=== PATIENT | female | born 1980 | race Caucasian/White ===

== ENCOUNTER 2017-09-09 07:42 | Day surgery (SDC) | payer BC ==
[~2017-09-09 07:42] MED LIST: RINGER'S SOLUTION,LACTATED 1,000 ML IV PRN
[2017-09-09] MEDS ORDERED: RINGER'S SOLUTION,LACTATED 1,000 ML IV ONE (08:15)
[2017-09-09] MEDS ORDERED: LIDOCAINE HCL/EPINEPHRINE 50 ML VIAL IJ ONE ×2 (10:00)
--- NOTE | 2017-09-09 12:19 | OR ---
Operative Report - Dictated Report Narrative: DATE OF PROCEDURE: 09/09/2017 INDICATION: 36 year old female with chronic pelvic pain, dysmenorrhea, right hydrosalpinx noted on pelvic ultrasound, desires permanent sterilization by removal of both fallopian tubes PREOPERATIVE DIAGNOSIS: Chronic pelvic pain, dysmenorrhea, right hydrosalpinx noted on pelvic ultrasound, desires permanent sterilization via removal of fallopian tubes POSTOPERATIVE DIAGNOSIS: Chronic pelvic pain, dysmenorrhea, tubal-ovarian adhesions, pelvic adhesions, possible endometriosis, uterine polyp OPERATION: Diagnostic laparoscopy, laparoscopic bilateral salpingectomy, lysis of pelvic adhesions, peritoneal biopsy of posterior cul-de-sac, diagnostic hysteroscopy, dilation and curettage, and uterine polypectomy SURGEON: Nasima Bravo D.O. STUNT MAN: OR staff ANESTHESIA: General ESTIMATED BLOOD LOSS: Minimal FLUID REPLACEMENT: 950 mL URINE OUTPUT: 50 mL FINDINGS: Uterus densely adherent to bladder, left tube adherent to the left pelvic sidewall above the pelvic brim, right fallopian tube adherent and twisted around ovary and broad ligament, white punctate lesion in the posterior cul-de-sac on the left uterosacral ligament, arcuate shaped uterus sounding to 8 cm, 1-2 cm polyp in the lower uterine segment. SPECIMEN(S): Fallopian tubes, peritoneal biopsy of left uterosacral ligament/ posterior cul-de-sac, endometrial curettings, endometrial polyp DRAINS: Haley catheter to gravity drainage intraoperatively TECHNIQUE: The patient was taken to the operating room and placed in dorsal lithotomy position after adequate general anesthesia was obtained and SCDs placed on both legs. The anterior lip of the cervix was grasped with a long Allis clamp and a uterine manipulator was inserted into the cervical canal and attached to the Allis clamps as a means to manipulate the uterus. Haley catheter was inserted into the bladder and placed to gravity drainage. Gloves were changed and attention was turned to the abdomen where the umbilicus and suprapubic region were injected with a 1% lidocaine epinephrine was solution. A scalpel was used to score the skin and a 5 mm non-bladed trocar was inserted via direct technique under direct visualization through the umbilical incision. Pneumoperitoneum was created with CO2 gas. A 5 mm non-bladed trocar was inserted in a similar fashion in the left lower quadrant and a 12 mm non-bladed trocar was inserted suprapubically. Through these 3 ports the surgery was carried out with findings as noted above. Using Kleppinger's and laparoscopic scissors the omental adhesions were freed from the anterior abdominal wall to allow visualization of the pelvis. The right fallopian tube was identified and followed out to the fimbriated end. The fallopian tube was coagulated with the Kleppinger's approximately 2 cm from the cornual region and along the mesosalpinx. The tube was then excised with laparoscopic scissors and removed through the 12 mm port. The left fallopian tube was freed from the pelvic sidewall using Kleppinger's and sharp and blunt dissection. The fallopian tube was then followed out to the fimbriated and coagulated approximately 2 cm from the cornual region and along the mesosalpinx. The tube was excised and removed through the 12 mm port. The bladder adhesions to the anterior lower uterine segment were not freed due to their extensive adherence into the lower uterine segment. 1-2 mm punctate lesion in the posterior cul-de-sac was grasped with laparoscopic graspers, tented from the pelvic sidewall and excised with laparoscopic scissors. Hemostasis was assured with the Kleppinger's. A gelatinous fluid-filled free-floating mass was noted in the posterior cul-de- sac. This was removed with the suction purchasing manager. The pelvis was copiously irrigated and fluid was removed. The CO2 gas was removed from the abdominal cavity. Trochars were removed under direct visualization. The skin of all incisions was closed with 4-0 Monocryl. Dermabond was applied to all incisions. The Valchev manipulator was removed from the uterus and a 5 mm 30 hysteroscope was inserted through the cervical canal into the uterine cavity with findings as noted above. The cervix was gently dilated to accommodate a size 2 curet. Sharp curettage was performed within the uterine cavity removing moderate amount of tissue and polyp. The hysteroscope was reinserted to assure complete removal of the polyp and thorough sampling of the uterine cavity. Instruments were removed from the cervix and vagina. The Haley catheter was removed. Sponge, lap, instrument, and needle count were correct x 2. DISPOSITION: The patient was awakened and transferred to post anesthesia care unit in good condition.
[2017-09-09] MEDS ORDERED: HYDROcodone/ACETAMINOPHEN 1 EACH TABLET PO PRN (13:41)
[2017-09-09 14:18] VITALS: BP 128/69
== END 2017-09-09 07:43 | disposition home or self-care (01) ==
LOC: AMB 07:42
PROVIDERS: ATTEND Obstetrics & Gynecology
PROC: 0UDB7ZX Extraction of Endometrium, Via Natural or Artificial Opening, Diagnostic (ICD-10-PCS; 2017-09-09)
PROC: 0UJD8ZZ Inspection of Uterus and Cervix, Via Natural or Artificial Opening Endoscopic (ICD-10-PCS; 2017-09-09)
PROC: 0UB74ZZ Excision of Bilateral Fallopian Tubes, Percutaneous Endoscopic Approach (ICD-10-PCS; principal; 2017-09-09 09:45)
PROC: 0UBF4ZX Excision of Cul-de-sac, Percutaneous Endoscopic Approach, Diagnostic (ICD-10-PCS; 2017-09-09 09:45)
DX: N84.0 Polyp of corpus uteri (principal); N70.11 Chronic salpingitis; N73.6 Female pelvic peritoneal adhesions (postinfective); N94.6 Dysmenorrhea, unspecified; F41.1 Generalized anxiety disorder; E55.9 Vitamin D deficiency, unspecified; E66.9 Obesity, unspecified; Z68.41 Body mass index [BMI] 40.0-44.9, adult; Z87.891 Personal history of nicotine dependence; Z30.2 Encounter for sterilization

== ENCOUNTER 2017-10-31 18:08 | Emergency (ER) | payer BC ==
[2017-10-31] MEDS ORDERED: METOCLOPRAMIDE HCL 5 MG/ML VIAL IV ONE (18:41)
[2017-10-31] MEDS ORDERED: diphenhydrAMINE HCL 50 MG/ML VIAL IV ONE (18:41)
[2017-10-31] MEDS ORDERED: diphenhydrAMINE HCL 50 MG/ML VIAL ONE (18:42)
[2017-10-31] MEDS ORDERED: METOCLOPRAMIDE HCL 5 MG/ML VIAL ONE (18:42)
--- NOTE | 2017-10-31 19:00 | ERNOTE ---
Headache ER HPI - General Presenting Symptoms: headache Time Seen by Provider: 10/31/17 18:36 Source: patient, family Exam Limitations: no limitations - Immun/Allergies/Home Medications Immunizations: IMMUNIZATION HX Immunizations Up to Date Yes History of Influenza Vaccine No Hx Pneumococcal Vaccination No Allergies/Adverse Reactions: Allergies acetaminophen [From Percocet] Adverse Reaction (Mild, Verified 09/09/17 14:28) Itching oxycodone HCl [From Percocet] Adverse Reaction (Mild, Verified 09/09/17 14:28) Itching Tetracyclines Adverse Reaction (Verified 09/09/17 14:28) TOLD NOT TO TAKE R/T PSEUDO TUMOR Home Medications: HOME MEDICATIONS Ibuprofen [Motrin] 800 mg PO TID PRN 02/25/13 [Last Taken Unknown] Cholecalciferol (Vitamin D3) [Vitamin D3] 10,000 unit PO DAILY 09/09/17 [Last Taken Unknown] Diazepam [Valium] 10 mg PO BID PRN 09/09/17 [Last Taken Unknown] Levofloxacin [Levaquin] 500 mg PO DAILY 10/31/17 [Last Taken Unknown] Prochlorperazine [Compazine] 25 mg RC BID PRN #14 supp.rect 10/31/17 [Last Taken Unknown] Sertraline HCl [Zoloft] 50 mg PO DAILY 10/31/17 [Last Taken Unknown] Spironolactone 50 mg PO BID 10/31/17 [Last Taken Unknown] Topiramate [Topamax] 75 mg PO DAILY 10/31/17 [Last Taken Unknown] - Pain Pain Score: 8 - History of Present Illness Timing of Headache: gradual Context Headache: Present: other - known pseudotumor cerebri Quality: Present: throbbing Severity Maximum: Present: moderate Severity-Currently: Present: moderate Headache frequency: Present: frequent headaches Modifying Factors - (Improves): Reports: other Review of Systems - Review of Systems Constitutional: Present: See HPI EYE: Present: no symptoms reported ENT: Present: no symptoms reported Respiratory: Present: no symptoms reported Cardiology: Present: no symptoms reported Gastrointestinal/Abdominal: Present: no symptoms reported Genitourinary: Present: no symptoms reported Musculoskeletal: Present: no symptoms reported Skin: Present: no symptoms reported Neurological: Present: headache Endocrine: Present: no symptoms reported Hematologic/Lymphatic: Present: no symptoms reported Psych: Present: no symptoms reported - Patient's Past Medical History Patient History - Medical: Migraines, Other - pseudotumor cerebri Patient History - Cardiac/Respiratory: No pertinent hx Patient History - Cancer: No Hx of Cancer Patient History - Surgical Procedures: Back Surgery, Cholecystectomy, Colonoscopy, , Tubal Ligation, T & A, Orthopedic Patient History - Other: None LMP (females 10-50): 1 month - Family History Brother Family History - Medical: Diabetes Type 1, Migraines Family History - Cardiac/Respiratory: No pertinent hx Family History - Cancer: No pertinent family hx Grandmother-Maternal Family History - Medical: , No pertinent hx Family History - Cardiac/Respiratory: Hypertension Family History - Cancer: Pancreatic Mother Family History - Medical: Arthritis, Hypothyroidism, Migraines Family History - Cardiac/Respiratory: No pertinent hx Family History - Cancer: No pertinent family hx Children Family History - Medical: Diabetes Type 1, Hypothyroidism Family History - Cardiac/Respiratory: No pertinent hx Family History - Cancer: No pertinent family hx - Social History Living Situations: spouse Abuse History: No History of abuse Psych History: No pertinent hx Smoking Status: Former smoker Have you smoked in the past 12 months: No Do you dip or chew tobacco: No Patient requests Smoking Cessation Consult: No Initiate information on Smoking Cessation: No Alcohol Use: none Drug Use: none - Immunizations Immunizations Up to Date: Yes Hx Pneumococcal Vaccination: No History of Influenza Vaccine: No Physical Exam - Physical Exam General Appearance: Present: wd/wn, alert, moderate distress Head Exam: Present: normal inspection, no evidence of injury Eye Exam: Normal inspection: bilateral, PERRL: bilateral, Photophobia: bilateral Ears, Nose, Throat: Present: normal ENT inspection, H, normal pharynx Neck: Present: normal inspection, nontender Respiratory: Present: no respiratory distress, normal breath sounds, no accessory muscle use, chest nontender, lungs clear Cardiovascular/Chest: Present: regular rate, rhythm, no murmur, normal peripheral pulses Gastrointestinal/Abdominal: Present: normal bowel sounds, nontender, nondistended, soft, no organomegaly Rectal Exam: Present: deferred Back Exam: Present: normal inspection, normal range of motion Extremity Exam: Present: normal inspection, non-tender, no edema, normal range of motion Neurological Exam: Present: alert, oriented, normal mood/affect Skin Exam: Present: normal color, warm/dry Lymphatic Exam: Present: no adenopathy ED Progress - Vital Signs Patient's Vital Signs:: I have reviewed the patient's vital signs. Vital Signs: Vital Signs 10/31/17 18:28 Temperature 37.6 C H Pulse Rate 87 Respiratory 18 Rate Blood Pressure 138/83 O2 Sat by Pulse 97 Oximetry - Progress/Reassessment Chief Complaint: Headache Progress:: Improved Plan - Plan Plan: I discussed the case with Juan Sanchez our STEREOTYPER HELPER and he states he would be glad to do a therapeutic lumbar puncture. He said Dr. Gonzales will make a referral and then he will see the patient in the ambulatory surgery at that point. Patient did very water Reglan and Benadryl and we will send patient home with prescription for 25 mg Compazine suppositories that she can take with Benadryl orally at home for any breakthrough migraines. Once again Dr. Gonzales will arrange for referral to Juan Sanchez and Dr. Gonzales will discuss Diamox with the patient as well. Departure Clinical Impression: Pseudotumor cerebri Headache Qualifiers: Headache type: other complicated headache syndrome Qualified Code(s): G44.59 - Other complicated headache syndrome - Departure Disposition: Home self-care Condition: Good Instructions: Recurrent Migraine Headache, [id number], Pseudotumor Cerebri Additional Instructions: Take 50 mg of Benadryl when you take your Compazine suppository for your headache Referrals: Dwain Gonzales MD [Primary Care Provider] - Prescriptions: Prochlorperazine [Compazine] 25 mg RC BID PRN #14 supp.rect PRN Reason: Headache
[2017-10-31] MEDS ORDERED: KETOROLAC TROMETHAMINE 30 MG/ML VIAL IV ONE (19:20)
[2017-10-31] MEDS ORDERED: KETOROLAC TROMETHAMINE 30 MG/ML VIAL ONE (19:21)
[2017-10-31 19:48] VITALS: BP 132/74
== END 2017-10-31 19:35 | disposition home or self-care (01) ==
LOC: ER 18:08
DX: G93.2 Benign intracranial hypertension (principal); G44.59 Other complicated headache syndrome

== ENCOUNTER 2017-11-03 09:46 | Day surgery (SDC) | payer BC ==
[2017-11-03] MEDS ORDERED: LIDOCAINE HCL/PF 5 ML VIAL IJ ONE (10:20)
--- NOTE | 2017-11-03 11:00 | OR ---
Anesthesia Pre Procedure Eval Date of Service: 11/03/17 Pre Procedure Evaluation: Last Vital Signs Temp 37.2 C 11/03/17 09:57 Pulse 71 11/03/17 10:39 Resp 18 11/03/17 10:39 BP 145/105 11/03/17 10:39 Pulse Ox 97 11/03/17 10:39 O2 Oxygen Delivery Method Room Air Anesthesia Pre Procedure Evaluation DATE: 11/03/2017. TIME: 1010 INDICATIONS: Headaches, history of pseudotumor cerebri. PAST MEDICAL HISTORY: Is a 37-year-old female with a history of headaches. She has had lumbar puncture in the past without complications. EXAM: MRI report and films were reviewed. Pain is 10/10 on pain scale at present. ASSESSMENT OF MEDICAL STATUS: Wrist and benefits were discussed with the patient and she consents to the procedure. O.K. to proceed with lumbar puncture. PLANNED PROCEDURE: Lumbar puncture. Home Medications: HOME MEDICATIONS Ibuprofen [Motrin] 800 mg PO TID PRN 02/25/13 [Last Taken Unknown] Cholecalciferol (Vitamin D3) [Vitamin D3] 10,000 unit PO DAILY 09/09/17 [Last Taken Unknown] Levofloxacin [Levaquin] 500 mg PO DAILY 10/31/17 [Last Taken Unknown] Sertraline HCl [Zoloft] 50 mg PO DAILY 10/31/17 [Last Taken Unknown] Spironolactone 50 mg PO BID 10/31/17 [Last Taken Unknown] Topiramate [Topamax] 75 mg PO DAILY 10/31/17 [Last Taken Unknown] Albuterol Sulfate [Albuterol Sulfate 2.5 MG/3 ML] 2.5 mg IH Q6H PRN 11/02/17 [ Last Taken Unknown] Albuterol Sulfate [Proair Hfa] 2 puff IH Q4H PRN 11/02/17 [Last Taken Unknown] Diazepam 10 mg PO BID PRN 11/02/17 [Last Taken Unknown] Prochlorperazine Maleate [Compazine] 5 mg PO Q6H PRN MDD 4 tabs/48 hrs 11/02/17 [Last Taken Unknown] acetaZOLAMIDE [Diamox Sequels] 500 mg PO BID 11/02/17 [Last Taken Unknown]
--- NOTE | 2017-11-03 11:03 | OR ---
Anesthesia Procedure Note - Anesthesia Procedure Note Date of Service: 11/03/17 Narrative: Vital Signs - Last Taken Temp 37.2 C 11/03/17 09:57 Pulse 71 11/03/17 10:39 Resp 18 11/03/17 10:39 BP 145/105 11/03/17 10:39 Pulse Ox 97 11/03/17 10:39 O2 Oxygen Delivery Method Room Air 11/03/17 11:00 ANESTHESIA PROCEDURE NOTE Date of Procedure: 11/03/2017. Time of procedure: 1020. Performed by: Jeevan Badillo CRNA Estimator Paperboard Boxes: None. Preprocedure diagnosis: Headaches, history of pseudotumor cerebri. Post procedure diagnosis: Same. Procedure: Lumbar Puncture. Indications: This is a 37-year-old female who is been experiencing increased headaches. She had a lumbar puncture performed in the past with relief of her headaches without complications. Findings: Opening pressure = 26.5 mmHg Clossing pressure = 16.5 mmHg. Details of the procedure: After informed consent was obtained the patient was placed in the left lateral decubitus position. Duraprep was applied to the patients back. The patient was then draped in a sterile fasion. Lidocaine 1% was infiltrated to the skin and subcutaneous tissues at the intended target site. The subarachnoid scace was identified at the level of the L3-4 interspace using a 22-gauge Edouard spinal needle. Free flow of CSF was noted. Pressure measurements were obtained.. Four specimens were drawn and sent to lab. Total spinal fluid removed was 16 mL. The spinal needle was removed intact. A Band- Aid was applied to the patient's back. EBL: Minimal. Fluids: N/A. Specimen: N/A. Post procedure condition: The patient tolerated the procedure well. No complications were noted. Thank you for this consultation. Jeevan Badillo CRNA
[2017-11-03 11:18] LABS: CSF Appearance Clear (CLEAR); CSF Color Colorless (COLORLESS); CSF RBC 1 /uL (0-10); CSF WBC 1 /uL (0-10)
[2017-11-03 11:35] LABS: CSF Lymphocytes 100 % (0-100)
[2017-11-03 11:39] VITALS: BP 133/75
== END 2017-11-03 09:47 | disposition home or self-care (01) ==
LOC: AMB 09:46
PROVIDERS: ATTEND Family Medicine
PROC: 009U3ZX Drainage of Spinal Canal, Percutaneous Approach, Diagnostic (ICD-10-PCS; principal; 2017-11-03 10:30)
DX: R51 Headache (principal)

== ENCOUNTER 2017-11-17 08:16 | Observation (INO) | payer BC ==
[~2017-11-17 08:16] MED LIST changes: -RINGER'S SOLUTION,LACTATED 1,000 ML IV PRN; +ceFAZolin SODIUM 3 GM in DEXTROSE 5 % IN WATER 100 ML IV PRN
[2017-11-17 08:40] LABS: Hematocrit 42.2 % (37.0-47.0); Hemoglobin 13.9 gm/dL (12.5-16.0); Mean Cell Volume 88.3 fl (78-100); Mean Corpuscular Hemoglobin 29.1 pg (27-31); Mean Corpuscular Hgb Conc 32.9 g/dl (32-36); Mean Platelet Volume 9.6 fl (6.0-9.5); Neutrophil # 5.8 K/mm3 (1.3-6.0); Platelet Count 286 K/mm3 (150-450); Red Blood Count 4.78 M/mm3 (4.2-5.4); Red Cell Distribution Width 15.7 % (11.5-14.0); White Blood Count 8.7 K/mm3 (4.0-10.5)
[2017-11-17] MEDS ORDERED: RINGER'S SOLUTION,LACTATED 1,000 ML IV ONE ×5 (08:45→14:35)
[2017-11-17 09:00] LABS: Anion Gap 14.5 mmol/L (6.8-13.8); BUN/Creatinine Ratio 10.6 (9.0-21.6); Bilirubin, Total 0.3 mg/dL (0.0-1.1); Ca. Corrected For Albumin 8.5 mg/dL (8.4-10.2); Calcium * 8.8 mg/dL (7.9-10.9); Carbon Dioxide 19.9 mmol/L (24-32.6); Potassium 3.4 mmol/L (3.4-4.6); Total Protein 7.8 gm/dL (6.2-8.2)
[2017-11-17] MEDS ORDERED: BUPIVACAINE HCL 50 ML VIAL IJ ONE ×2 (09:50)
[2017-11-17] MEDS ORDERED: RINGER'S SOLUTION,LACTATED 1,000 ML IV PRN (14:46)
--- NOTE | 2017-11-17 14:46 | OR ---
Operative Report - Dictated Report Narrative: DATE OF PROCEDURE: 11/17/2017 PROCEDURE: 1. Total laparoscopic hysterectomy, Left oophorectomy 2. Lysis of adhesion (45 min) 3. Diagnostic cystoscopy. ANESTHESIA: General, endotracheal intubation. PREOPERATIVE DIAGNOSES: 1. Menometrorrhagia 2. Chronic pelvic pain (LLQ pain) 3. Dysmenorrhea 4. Pelvic adhesions 5. status post x 2 6. s/p laparoscopic cholecystectomy 7. s/p laparoscopic lysis of adhesions, hysteroscopy and bilateral salpingectomy. 8. Morbid obesity BMI 43.2, weight 124 kg POSTOPERATIVE DIAGNOSES: 1. Menometrorrhagia 2. Chronic pelvic pain (LLQ pain) 3. Dysmenorrhea 4. Pelvic adhesions 5. status post x 2 6. s/p laparoscopic cholecystectomy 7. s/p laparoscopic lysis of adhesions, hysteroscopy and bilateral salpingectomy. 8. Morbid obesity BMI 43.2, weight 124 kg SURGEON: Sheryl Lara M.D. SENIOR RESEARCH EXECUTIVE: Lakia Unger Elizabeth FINDINGS: 1. Deep and distorted umbilicus due to multiple laparoscopy in the area with the underlying fascia at the deepest portion of the umbilicus from the subcutaneous area making the umbilicus at least 5 cm deep or more. 2. Uterus retroverted, sounded to 7 cm. There were dense adhesions between the lower uterine segment and the bladder. Both ovaries appeared normal. Both fallopian tubes were missing, consistent with history of bilateral salpingectomy. 3. On cystoscopy, the bladder appeared intact and both ureteral jets were seen, confirming the integrity of the ureters. SPECIMENS: Uterus, cervix, and left ovary DRAINS: None. URINE OUTPUT: 450 ml BLOOD LOSS: 100 ml INTRAOPARATIVE IV FLUIDS: 2850 ml COMPLICATIONS: None. DESCRIPTION OF PROCEDURE: The patient consented to the operation and was taken to the operating room. She was placed on the operating table supine. SCDs were placed on her lower extremities. General anesthesia was induced. Three grams of ancef was given by IV prior to anesthesia induction. She was repositioned in the dorsal lithotomy position. Her right arm was tucked at her side under the drape. Exam under anesthesia revealed a retroverted uterus with no adnexal mass. The abdomen was prepped with Chloraprep and the vagina was prepped with Betadine. She was draped in the usual sterile fashion. A time-out procedure was conducted to confirm the correct patient for the correct procedure. After time-out, a Haley catheter was placed into the bladder. A bivalve speculum was placed into the vagina. The vagina and the cervix were prepped with Betadine one more time. The anterior cervix was grasped with a single-tooth tenaculum. The uterus was sounded to 7 cm. A large size VCare uterine manipulator was inserted into the uterine cavity. The balloon was inflated with 4 cc of air. The single-tooth tenaculum was removed. [place] speculum was removed. The upper VCare cup was advanced into the vagina to hug the cervix. The lower VCare cup was advanced into the vagina to align with the upper VCare cup and to provide pneumoperitoneum for the procedure. The lower VCare cup was fastened to the uterine manipulator. The surgeon then changed gloves and attention was paid to the abdomen. The umbilicus appeared distorted and deep due to prior multiple laparoscopy. So a Veress needle was inserted through the deepest portion of the umbilicus into the abdominal cavity. Multiple attempts were made to insert the Veress needle, but intraabdominal placement was not confirmed either failing a saline drop test or an initial low entry pressure went up quickly to over 12 mmHg. It was decided to perform an open entry laparoscopy. The skin at the side of the umbilicus was lifted up with towel clips. A vertical sub-umbilical skin incision was made. The subcutaneous tissue was dissected. Kocker clamps were used to grab the fascia on both side near the upper edge of the umbilicus. An incision was made on the fascia between the Kocker clamps and the fascia was dissected. The peritoneum was lifted up with hemostats and entered sharply with a scalpel. A 5 mm trocar was inserted. The fascia edge was tagged by 0-vicryl suture for later closure. The skin around the 5 mm trocar was temporarily closed with a figure of eight suture to contain the pneumoperitoneum. The abdomen was insufflated with CO2 gas to an intraabdominal pressure of 15 mmHg. A 5 mm laparoscope was inserted through the umbilicus trocar into the abdomen. Intraabdominal placement was confirmed with the laparoscope. Survey of the entry site revealed no trauma to the underlying structures. The patient was then placed in Trendelenburg position. Both a left and a right lower quadrant trocars (5 mm) were placed superior and medial to the anterior superior iliac spine to avoid nerves and vessels. A suprapubic trocar (5 mm) was placed in the midline. Survey of the rest of the abdomen and pelvis revealed the findings noted above. Attention was now turned to the left side. The left IP ligament was elevated and divided with the Thunderbeat. The division was continued on the broad ligament and the round ligament. The course of the left ureter was not identified, but believed to be away from the surgical field. After the division of the round ligament, the broad ligament incision was into the anterior leaf and the posterior leaf. Anterior leaf of the broad ligament was dissected towards the bladder uterine reflection. The posterior leaf of the broad ligament was dissected towards the uterosacral ligament. The left uterine vessel was isolated and divided with the Thunderbeat. Lysis of adhesions were perform between the lower uterine segment and the bladder. The lower uterine segment was dissected free and the bladder was freed down from the cervix. The cardinal ligament complex was divided with the Thunderbeat to the level of vaginal cervical junction. Attention was now turned to the right side. The course of the right ureter was not identified due to obesity. The utero-ovarian ligament was divided and the division was continued on the round ligament. The broad ligament incision was into the anterior leaf and the posterior leaf. The anterior leaf of the broad ligament was dissected towards the bladder uterine reflection and to meet with the opposite dissection point at the midline. The posterior leaf of the broad ligament was dissected towards the uterosacral ligament. The right uterine vessel was isolated, and divided with the Thunderbeat. The cardinal ligament complex was divided with the Thunderbeat to the level of vaginal cervical junction. The vaginal fornix was seen well through the VCare cup. The Thunderbeat was used to make an anterior colpotomy over the VCare cup groove. Entry into the vagina was without complications. A circumferential incision was made along the vaginal cervical junction using the VCare cup groove as a guide. Bilateral uterosacral ligament was divided. The cervix was completely divided from the vagina. The surgeon moved to the vaginal area to retrieve the specimen. The VCare uterine manipulator was removed. The uterus with the cervix and left ovary were removed through the vagina. The vagina was packed with 2 moist laps to keep the pneumoperitoneum. The surgeon then changed gloves and attention was paid back to the abdomen. The pelvis was thoroughly irrigated with saline. The vaginal opening was closed transversely with 0 Vicryl Endoknot suture in an interrupted fashion using intracorporeal suturing technique and extracorporeal knot tying. The uterosacral ligament was sutured to the vaginal cuff corner for cuff support. The pelvis was irrigated with saline. Extra fluid was suctioned out from the abdomen and pelvis. There was hemostasis in all vessel pedicles. The patient was taken out of Trendelenburg. The trocar at the umbilicus was removed. The fascia of the umbilicus was closed with interrupted 0 vicryl sutures under the visualization of the laparoscopy through the LLQ trocar to avoid injury to the bowels while ensuring taking good bites on the fascia. The RLQ trocar and suprapubic trocar were removed. The abdomen was deflated. The LLQ trocar was removed with the laparoscope. The skin incision was closed with 4-0 Monocryl suture and 2 to 3 cc of 0.25% Marcaine was infiltrated around each incision for post op pain management. The incisions were covered with Steri-Strips. A diagnostic cystoscopy was performed. Vaginal packing was removed and the Haley catheter was removed. A 70-degree cystoscope was introduced through the urethra into the bladder. Exam of the bladder revealed the bladder was intact. The both ureteral jets were observed. The cystoscope was removed. The Haley catheter was not replaced. The patient tolerated the procedure well. All counts were correct and the patient was taken to the recovery room in stable condition. Sheryl Lara MD
[2017-11-17] MEDS ORDERED: IBUPROFEN 800 MG TABLET ONE (16:29)
[2017-11-17] MEDS: IBUPROFEN 800 MG TABLET PO ONE (16:30)
[2017-11-17] MEDS: HYDROcodone/ACETAMINOPHEN 1 EACH TABLET PO PRN ×2 (16:30→22:41)
--- NOTE | 2017-11-17 19:02 | PN ---
Subjective - Date and Time Seen Date: 11/17/17 Subjective Narrative: Post op note. Patient has nausea and vomited once. She is also complaining of feeling dizziness when getting up and has difficulty to walk. She has history of multiple right knee surgery. Exam: NAD Abdomen: non-distended, soft, incisions dry and clean. Ext: no edema or swelling. Plan: Will keep her overnight for observation. Sheryl Lara MD Objective - Vitals Vitals: Last Vital Signs Temp 36.6 C 11/17/17 15:48 Pulse 73 11/17/17 18:38 Resp 14 11/17/17 18:38 BP 117/47 11/17/17 18:38 Pulse Ox 97 11/17/17 18:38 - Abnormal Lab Findings Abnormal Lab Findings: Abnormal Lab Results 11/17/17 11/17/17 Range/Units 08:37 08:37 RDW 15.7 H (11.5-14.0) % MPV 9.6 H (6.0-9.5) fl Immature Gran % (Auto) 0.50 H (0.001-0.429) % Immature Gran # (Auto) 0.04 H (0.000-0.0310) K/mm3 Chloride 107 H (97-106) mmol/L Carbon Dioxide 19.9 L (24-32.6) mmol/L Anion Gap 14.5 H (6.8-13.8) mmol/L
[2017-11-17] MEDS: RINGER'S SOLUTION,LACTATED 1,000 ML IV PRN (22:03)
[2017-11-17] MEDS ORDERED: ONDANSETRON HCL/PF 2 MG/ML VIAL IV PRN (22:52)
[2017-11-17] MEDS ORDERED: PROMETHAZINE HCL 12.5 MG in DEXTROSE 5 % IN WATER 50 ML IV PRN ×2 (22:53)
[2017-11-18] MEDS: HYDROcodone/ACETAMINOPHEN 1 EACH TABLET PO PRN ×2 (05:08→11:50)
[2017-11-18] MEDS: RINGER'S SOLUTION,LACTATED 1,000 ML IV PRN (06:22)
[2017-11-18] MEDS: IBUPROFEN 800 MG TABLET PO ONE (06:23)
[2017-11-18] MEDS ORDERED: IBUPROFEN 800 MG TABLET PO PRN (08:57)
[2017-11-18] MEDS ORDERED: NON-FORMULARY 1 DOSE DOSE (Albuterol Sulfate 2.5 MG) IH PRN (09:49)
[2017-11-18] MEDS ORDERED: ALBUTEROL SULFATE 2.5 MG/0.5 ML VIAL.NEB IH PRN (09:49)
[2017-11-18] MEDS ORDERED: TOPIRAMATE 50 MG TABLET PO SCH (10:00)
[2017-11-18] MEDS ORDERED: SPIRONOLACTONE 25 MG TABLET PO SCH (10:00)
[2017-11-18] MEDS ORDERED: SERTRALINE HCL 50 MG TABLET PO SCH (10:00)
--- NOTE | 2017-11-18 11:46 | PN ---
Subjective - Date and Time Seen Date: 11/18/17 Subjective Narrative: post op day 1, s/p total laparoscopic hysterectomy with left oophorectomy patient noted to having some low blood pressure post op, especially her diastolic is in the 50s and 40s. she is not symptomatic. denies palpitation, short of breath or chest pain. she has some nausea, vomiting post op and these are controlled with antiemetic. she also has some mild headache 3/10 today, but no blurry vision. she has history of pseudotumor cerebri and has some baseline nausea and headache. For this, she is taking acetazolamide, spironalactone and topiramate. regarding post op, she is ambulating without difficulty. her pain is incisional and abdominal; and these are controlled with norco and ibuprofen. she tolerated her oral intake and passed gas. vitals: BP 94/40, 84/51, 88/40 p 56, 65, 63 R 16, 18 O2 sat 98-99% room air Exam: NAD Breathing unlabored. lungs: clear heart: regular rate and rhythm, no murmurs. abdomen: obese, non-distended, soft, incisions dry and clean. bowel sound present. extremities: no edema or calf tenderness. A/P 1. post op day 1, s/p TLH, left oophorectomy, recovering as expected, tolerating po, ambulating, passing flatus and pain controlled. 2. low blood pressure especially diastalic in the 50s-40s, without signs of cardio-pulmonary distress, with normal pulse and O2 sat. Causes of low BP unknown at this time, will call internal medicine for consultation. Sheryl Lara MD Objective - Vitals Vitals: Last Vital Signs Temp 36.8 C 11/18/17 10:44 Pulse 63 11/18/17 10:44 Resp 18 11/18/17 10:44 BP 88/40 11/18/17 10:44 Pulse Ox 99 11/18/17 10:44
[2017-11-18 12:07] LABS: Hematocrit 34.5 % (37.0-47.0); Hemoglobin 11.4 gm/dL (12.5-16.0); Mean Cell Volume 89.4 fl (78-100); Mean Corpuscular Hemoglobin 29.5 pg (27-31); Mean Platelet Volume 9.3 fl (6.0-9.5); Neutrophil # 6.3 K/mm3 (1.3-6.0); Neutrophil % 64.4 % (42-75.0); Platelet Count 223 K/mm3 (150-450); Red Blood Count 3.86 M/mm3 (4.2-5.4); Red Cell Distribution Width 16.3 % (11.5-14.0); White Blood Count 9.8 K/mm3 (4.0-10.5)
[2017-11-18 12:28] LABS: ALT 21 U/L (19-67); AST 22 U/L (0-48); Albumin * 3.1 gm/dl (3.4-5.0); Alkaline Phosphatase * 71 U/L (50-170); Anion Gap 13.2 mmol/L (6.8-13.8); BUN/Creatinine Ratio 8.4 (9.0-21.6); Bilirubin, Total 0.3 mg/dL (0.0-1.1); Blood Urea Nitrogen 8 mg/dL (3-23); Ca. Corrected For Albumin 8.7 mg/dL (8.4-10.2); Calcium * 8.3 mg/dL (7.9-10.9); Chloride 111 mmol/L (97-106); Glucose * 82 mg/dL (70-110); Potassium 3.2 mmol/L (3.4-4.6); Sodium 141 mmol/L (132-142); Total Protein 6.3 gm/dL (6.2-8.2); Troponin I Less than 0.017 ng/ml (0.00-0.10)
[2017-11-18] MEDS: POTASSIUM CHLORIDE 20 MEQ TABLET.SA PO SCH ×2 (13:05→14:42)
--- NOTE | 2017-11-18 14:21 | DS ---
(1) Status post laparoscopic hysterectomy Problem: Acute (2) Status post left oophorectomy Problem: Acute (3) Morbid obesity with BMI of 40.0-44.9, adult Problem: Acute (4) Low blood pressure Problem: Acute (5) Pseudotumor cerebri Problem: Acute (6) Menometrorrhagia Problem: Acute (7) Chronic pelvic pain in female Problem: Acute Description of Stay: post op day 1, s/p total laparoscopic hysterectomy and left oophorectomy. doing overall well from post op except some abdominal pain and low blood pressure. especially her diastolic BP in the 50s to 40s. denies short of breath or chest pain. her incisional pain and abdominal pain are partially controlled by pain medications. patient is ambulating, tolerating po and urinating with good amount of urine. passed flatus. patient seen and evaluated by Dr. Almonte for consultation regarding low BP. Dr. almonte thought her low blood pressure could be also due to taking acetazolamide and spironalactone. repeat labs appeared normal except low K at 3.2. low suspicion for blood clots or PE, given normal pulse and normal O2 sat. D- dimer would not help as she is post op. Dr. Almonte is OK for patient to go home, but would like her to hold acetazolamine and spironalactone tonight. Exams overall unremarkable. Sheryl Lara MD Procedures Performed: see notes below - total laparoscopic hysterectomy with left oophorectomy, lysis of adhesion and cystoscopy Discharge Disposition: Home self care Disposition: Home self-care Condition: Good Discharge Activity: Activity as tolerated, No Lifting Discharge Diet: General/regular food - patient to follow up with Dr. Gonzales regarding acetazolamide and to hold acetazolamide and spironolactone today Referrals: Dwain Gonzales MD [Primary Care Provider] - Problem Oriented Discharge Instructions to Patient/Family: Total Laparoscopic Hysterectomy, Care After Additional Patient Instructions (free text): Please follow up with Dr. Lara on Saturday November 25, 2017 at 9:15 AM. Please call [facility] at [phone] if you have any questions or concerns. Hold all home medications today (except asthma medication). You may resume your home medications tomorrow. Your next dose of hydrocodone-acetaminophen 5/325mg is at 8:30 PM tonight . Your next dose of ibuprofen 800mg is available at 12:30 AM tomorrow 11/18/17. Complete Home Medications List: Complete Home Medication List: Ibuprofen [Motrin] 800 mg PO TID PRN 02/25/13 Cholecalciferol (Vitamin D3) [Vitamin D3] 10,000 unit PO DAILY 09/09/17 Sertraline HCl [Zoloft] 50 mg PO DAILY 10/31/17 Spironolactone 50 mg PO BID 10/31/17 Topiramate [Topamax] 75 mg PO BID 10/31/17 Albuterol Sulfate [Albuterol Sulfate 2.5 MG/3 ML] 2.5 mg IH Q6H PRN 11/02/17 Albuterol Sulfate [Proair Hfa] 2 puff IH Q4H PRN 11/02/17 Diazepam 20 mg PO HS PRN MDD 30 mg 11/02/17 acetaZOLAMIDE [Diamox Sequels] 1,000 mg PO BID 11/02/17 Vits96/Iron Fum/Folic [ S] 2 tab PO DAILY 11/16/17 HYDROcodone/ACETAMINOPHEN [Hydrocodone-Acetamin 5-300 mg] 1 each PO Q4H PRN #30 tablet 11/17/17 Ibuprofen [Motrin] 800 mg PO Q8H PRN #30 tablet 11/17/17 Ondansetron HCl [Zofran] 1 tab PO Q4H PRN #15 tablet 11/17/17
[2017-11-18 14:40] VITALS: BP 102/48
== END 2017-11-18 14:55 | disposition home or self-care (01) ==
LOC: AMB 08:16 → MS 19:08
PROVIDERS: ADMIT Obstetrics & Gynecology; ATTEND Obstetrics & Gynecology
PROC: 0UTC4ZZ Resection of Cervix, Percutaneous Endoscopic Approach (ICD-10-PCS; 2017-11-17)
PROC: 0UT14ZZ Resection of Left Ovary, Percutaneous Endoscopic Approach (ICD-10-PCS; 2017-11-17)
PROC: 0DNW4ZZ Release Peritoneum, Percutaneous Endoscopic Approach (ICD-10-PCS; 2017-11-17)
PROC: 0UT94ZZ Resection of Uterus, Percutaneous Endoscopic Approach (ICD-10-PCS; principal; 2017-11-17 09:30)
DX: N92.1 Excessive and frequent menstruation with irregular cycle (principal); R10.2 Pelvic and perineal pain; I95.81 Postprocedural hypotension; G93.2 Benign intracranial hypertension; E66.01 Morbid (severe) obesity due to excess calories; Z68.41 Body mass index [BMI] 40.0-44.9, adult; N99.4 Postprocedural pelvic peritoneal adhesions
CPT/HCPCS: 36415; 49329; 58571; 80053; 84484; 85025; 86850; 86900; 88307; 93005; 96374; G0378; J2405

== ENCOUNTER 2018-01-05 08:02 | Day surgery (SDC) | payer BC ==
--- NOTE | 2018-01-05 08:34 | OR ---
Anesthesia Pre Procedure Eval Date of Service: 01/05/18 Pre Procedure Evaluation: Last Vital Signs Temp 36.5 C 01/05/18 08:12 Pulse 69 01/05/18 08:12 Resp 14 01/05/18 08:12 BP 114/70 01/05/18 08:12 Pulse Ox 96 01/05/18 08:12 O2 Oxygen Delivery Method Room Air Anesthesia Pre Procedure Evaluation DATE: 01/05/2018. TIME: 08. INDICATIONS: Headaches. PAST MEDICAL HISTORY: Is a 37-year-old female with a history of headaches and increased intracranial pressure. She has had multiple lumbar punctures in the past for relief of her headaches. She presents today with complaints of headache and visual disturbances. EXAM: Pain is 10/10 on pain scale at present. ASSESSMENT OF MEDICAL STATUS: O.K. to proceed with lumbar puncture. PLANNED PROCEDURE: Lumbar Puncture. Home Medications: HOME MEDICATIONS Ibuprofen [Motrin] 800 mg PO TID PRN 02/25/13 [Last Taken Unknown] Cholecalciferol (Vitamin D3) [Vitamin D3] 10,000 unit PO DAILY 09/09/17 [Last Taken Unknown] Topiramate [Topamax] 75 mg PO BID 10/31/17 [Last Taken Unknown] Albuterol Sulfate [Albuterol Sulfate 2.5 MG/3 ML] 2.5 mg IH Q6H PRN 11/02/17 [ Last Taken Unknown] Albuterol Sulfate [Proair Hfa] 2 puff IH Q4H PRN 11/02/17 [Last Taken Unknown] Diazepam 10 mg PO TID 11/02/17 [Last Taken Unknown] acetaZOLAMIDE [Diamox Sequels] 1,000 mg PO BID 11/02/17 [Last Taken Unknown] Vits96/Iron Fum/Folic [ S] 2 tab PO DAILY 11/16/17 [Last Taken Unknown] Furosemide 20 mg PO DAILY 01/05/18 [Last Taken Unknown] Potassium Chloride [Klor-Con 10] 20 meq PO DAILY 01/05/18 [Last Taken Unknown]
--- NOTE | 2018-01-05 09:18 | OR ---
Anesthesia Procedure Note - Anesthesia Procedure Note Date of Service: 01/05/18 Narrative: Vital Signs - Last Taken Temp 36.5 C 01/05/18 08:12 Pulse 64 01/05/18 09:08 Resp 16 01/05/18 09:08 BP 133/68 01/05/18 09:08 Pulse Ox 98 01/05/18 09:08 O2 Oxygen Delivery Method Room Air 01/05/18 09:15 ANESTHESIA PROCEDURE NOTE Date of Procedure: 01/05/2018. Time of procedure: 839. Performed by: Jeevan Badillo CRNA [place]: None. Preprocedure diagnosis: Headaches, pseudotumor cerebri. Post procedure diagnosis: Same. Procedure: Lumbar Puncture. Indications: This is a 37-year-old female with a history of headaches and visual disturbances. She has had multiple lumbar punctures to relieve her discomfort. She presents today with the same complaints. Findings: Opening pressure = 26.5 mmHg Closing pressure = 15.5 mmHg. Details of the procedure: After informed consent was obtained the patient was placed in the right lateral decubitus position. Duraprep was applied to the patients back. The patient was then draped in a sterile fasion. Lidocaine 1% was infiltrated to the skin and subcutaneous tissues at the intended target site. The subarachnoid scace was identified at the level of the L4-5 interspace using a 22-gauge Edouard spinal needle. Free flow of CSF was noted. Pressure measurements were obtained. 21 mL of clear cerebrospinal fluid was removed. The spinal needle was removed intact. A Band-Aid was applied to the patient's back. EBL: Minimal. Fluids: N/A. Specimen: N/A. Post procedure condition: The patient tolerated the procedure well. No complications were noted. Thank you for this consultation. Jeevan Badillo CRNA
[2018-01-05 09:49] VITALS: BP 139/80
== END 2018-01-05 08:03 | disposition home or self-care (01) ==
LOC: AMB 08:02
PROVIDERS: ATTEND Family Medicine
PROC: 009U3ZZ Drainage of Spinal Canal, Percutaneous Approach (ICD-10-PCS; principal; 2018-01-05)
DX: Z87.891 Personal history of nicotine dependence; Z68.41 Body mass index [BMI] 40.0-44.9, adult; G93.2 Benign intracranial hypertension; R51 Headache; H53.9 Unspecified visual disturbance

== ENCOUNTER 2018-01-07 10:51 | Emergency (ER) | payer BC ==
[2018-01-07] MEDS ORDERED: METOCLOPRAMIDE HCL 5 MG/ML VIAL IV ONE (11:46)
[2018-01-07] MEDS ORDERED: diphenhydrAMINE HCL 50 MG/ML VIAL IM ONE (11:46)
[2018-01-07] MEDS ORDERED: NORMAL SALINE 1,000 ML IV ONE ×2 (11:46→14:28)
[2018-01-07] MEDS ORDERED: METOCLOPRAMIDE HCL 5 MG/ML VIAL ONE ×2 (11:54→11:59)
[2018-01-07] MEDS ORDERED: diphenhydrAMINE HCL 50 MG/ML VIAL ONE ×2 (11:54→11:58)
[2018-01-07] MEDS ORDERED: diphenhydrAMINE HCL 50 MG/ML VIAL IV ONE (12:25)
--- NOTE | 2018-01-07 12:41 | ERNOTE ---
Headache ER HPI - Narrative Date of Service: 01/07/18 - General Presenting Symptoms: headache Time Seen by Provider: 01/07/18 11:41 Source: patient, family, RN notes reviewed, old records Exam Limitations: clinical condition - Immun/Allergies/Home Medications Immunizations: IMMUNIZATION HX Immunizations Up to Date Yes History of Influenza Vaccine No Hx Pneumococcal Vaccination No Allergies/Adverse Reactions: Allergies acetaminophen [From Percocet] Adverse Reaction (Mild, Verified 01/07/18 10:59) Itching oxycodone HCl [From Percocet] Adverse Reaction (Mild, Verified 01/07/18 10:59) Itching Tetracyclines Adverse Reaction (Verified 01/07/18 10:59) TOLD NOT TO TAKE R/T PSEUDO TUMOR Home Medications: HOME MEDICATIONS Ibuprofen [Motrin] 800 mg PO TID PRN 02/25/13 [Last Taken Unknown] Cholecalciferol (Vitamin D3) [Vitamin D3] 10,000 unit PO DAILY 09/09/17 [Last Taken Unknown] Topiramate [Topamax] 75 mg PO BID 10/31/17 [Last Taken Unknown] Albuterol Sulfate [Albuterol Sulfate 2.5 MG/3 ML] 2.5 mg IH Q6H PRN 11/02/17 [ Last Taken Unknown] Albuterol Sulfate [Proair Hfa] 2 puff IH Q4H PRN 11/02/17 [Last Taken Unknown] Diazepam 10 mg PO TID 11/02/17 [Last Taken Unknown] acetaZOLAMIDE [Diamox Sequels] 1,000 mg PO BID 11/02/17 [Last Taken Unknown] Vits96/Iron Fum/Folic [ S] 2 tab PO DAILY 11/16/17 [Last Taken Unknown] Furosemide 20 mg PO DAILY 01/05/18 [Last Taken Unknown] Potassium Chloride [Klor-Con 10] 20 meq PO DAILY 01/05/18 [Last Taken Unknown] - History of Present Illness Narrative: Kenna is a 37 year old female who presents to the ED for a severe headache that began abruptly this morning. She reports feeling like there was an "explosion" in her neck and the back of her head. She had a lumbar puncture done 2 days ago for treatment of pseudotumor cerebri. She felt like she was having some improvement by yesterday evening. She states she has been taking a lot of ibuprofen. She has an appointment with her PCP this afternoon and sees a neurologist next week. Date (Duration): 01/07/18 Time (Timing): 21:30 Timing of Headache: abrupt Severity Maximum: Present: severe Severity-Currently: Present: severe Headache frequency: Present: chronic headaches. Absent: similar to previous headache Modifying Factors - (Improves): Reports: other - supine position Associated Symptoms: Reports: nausea, neck pain/stiffness. Denies: fever/chills , vomiting, sweating, nasal congestion, nasal drainage, facial pain, weakness, numbness/tingling, vision changes, confusion, light-headedness, dizziness, loss of consciousness, seizures, speech problems Exacerbated by:: Reports: light Prior Treament: Reports: recently seen, treated by physician Review of Systems - Review of Systems Constitutional: Absent: recent illness, fever, chills EYE: Present: see HPI ENT: Present: See HPI Respiratory: Absent: shortness of breath, cough Cardiology: Absent: palpitations, syncope Gastrointestinal/Abdominal: Present: See HPI Genitourinary: Present: no symptoms reported Musculoskeletal: Absent: joint pain, joint swelling Skin: Absent: rash, lesions, lumps Neurological: Present: See HPI Endocrine: Present: no symptoms reported Hematologic/Lymphatic: Absent: easy bruising, easy bleeding Psych: Present: anxiety - Patient's Past Medical History Patient History - Medical: Anxiety, Depression, Migraines, Other - Pseudotumor cerebri Patient History - Cardiac/Respiratory: Bronchitis Patient History - Cancer: No Hx of Cancer Patient History - Surgical Procedures: Cholecystectomy, EGD, Hysterectomy, Tubal Ligation, T & A, Other - Lumbar puncture - several times, ENT, Orthopedic Patient History - Other: None LMP (females 10-50): s/p hysterectomy - Family History Brother Family History - Medical: Diabetes Type 1, Other Family History - Cardiac/Respiratory: No pertinent hx Family History - Cancer: No pertinent family hx Grandmother-Maternal Family History - Medical: , No pertinent hx Family History - Cardiac/Respiratory: Hypertension Family History - Cancer: Pancreatic Mother Family History - Medical: Hypothyroidism, Migraines, Osteoarthritis Family History - Cardiac/Respiratory: No pertinent hx Family History - Cancer: No pertinent family hx Children Family History - Medical: Diabetes Type 1, Hypothyroidism Family History - Cardiac/Respiratory: No pertinent hx Family History - Cancer: No pertinent family hx Father Family History - Medical: No pertinent hx Family History - Cardiac/Respiratory: Hypertension Family History - Cancer: Colon - Social History Living Situations: spouse Abuse History: No History of abuse Psych History: Hx of Anxiety Smoking Status: Former smoker Alcohol Use: none Drug Use: none - Immunizations Immunizations Up to Date: Yes Hx Pneumococcal Vaccination: No History of Influenza Vaccine: No Physical Exam - Physical Exam General Appearance: Present: wd/wn, alert, moderate distress Head Exam: Present: normal inspection, no evidence of injury Eye Exam: Normal inspection: bilateral, PERRL: bilateral Ears, Nose, Throat: Present: normal ENT inspection, normal pharynx Neck: Present: supple, full range of motion, tender lateral - diffuse muscle tenderness Respiratory: Present: no respiratory distress, normal breath sounds, no accessory muscle use, lungs clear Cardiovascular/Chest: Present: regular rate, rhythm, no murmur, normal peripheral pulses Extremity Exam: Present: normal inspection, normal range of motion Neurological Exam: Present: alert, oriented, normal mood/affect, no motor/ sensory deficits Skin Exam: Present: normal color, warm/dry ED Progress - Results and Orders Patient's Lab Results:: I have reviewed the patient's lab results. - Vital Signs Patient's Vital Signs:: I have reviewed the patient's vital signs. Vital Signs: Vital Signs 01/07/18 10:55 Temperature 36.6 C Pulse Rate 78 Respiratory 12 Rate Blood Pressure 128/103 O2 Sat by Pulse 100 Oximetry - CT/Ultrasound CT/Ultrasound Narrative: Non-contrast head CT shows no acute intracranial process - Progress/Reassessment Chief Complaint: Headache Progress:: Improved Progress Note-Subjective: 01/07/18 13:53 Headache has improved, rates pain as 2/10 while laying still but has severe neck pain with movement. Norflex ordered. 01/07/18 14:40 Patient continues to report headache. BP dropped into the 70's but she states this is not unusual for her. Additional liter of NS ordered. 01/07/18 15:51 BP has improved. Patient continues to report headache and neck pain. Ambulated to bathroom without difficulty. Noted to turn and look behind her while laying on her side on cart without appearing uncomfortable. Discussed with patient's PCP, Dr. Gonzales. He had no new recommendations as her headaches have been difficult to evaluate as well as treat. Patient is agreeable to going home and trying to rest at this point. Departure Clinical Impression: Headache Qualifiers: Headache type: unspecified Headache chronicity pattern: unspecified pattern Intractability: not intractable Qualified Code(s): R51 - Headache - Departure Disposition: Home Follow Up Needed Condition: Stable Instructions: General Headache Without Cause Additional Instructions: Rest Return if symptoms worsen otherwise see neurology as scheduled Referrals: Dwain Gonzales MD [Primary Care Provider] -
[2018-01-07 13:04] LABS: Hematocrit 38.4 % (37.0-47.0); Hemoglobin 12.4 gm/dL (12.5-16.0); Mean Corpuscular Hgb Conc 32.3 g/dl (32-36); Mean Platelet Volume 9.7 fl (6.0-9.5); Neutrophil # 4.1 K/mm3 (1.3-6.0); Neutrophil % 58.2 % (42-75.0); Platelet Count 237 K/mm3 (150-450); Red Blood Count 4.13 M/mm3 (4.2-5.4); Red Cell Distribution Width 14.5 % (11.5-14.0)
[2018-01-07] MEDS ORDERED: KETOROLAC TROMETHAMINE 30 MG/ML VIAL IV ONE (13:09)
[2018-01-07] MEDS ORDERED: KETOROLAC TROMETHAMINE 30 MG/ML VIAL ONE (13:14)
[2018-01-07 13:30] LABS: Albumin * 3.4 gm/dl (3.4-5.0); BUN/Creatinine Ratio 6.4 (9.0-21.6); Bilirubin, Total 0.2 mg/dL (0.0-1.1); Ca. Corrected For Albumin 8.6 mg/dL (8.4-10.2); Calcium * 8.4 mg/dL (7.9-10.9); Carbon Dioxide 26.9 mmol/L (24-32.6); Potassium 3.9 mmol/L (3.4-4.6); Total Protein 6.7 gm/dL (6.2-8.2)
[2018-01-07] MEDS ORDERED: ORPHENADRINE CITRATE 30 MG/ML VIAL IV ONE (13:53)
[2018-01-07] MEDS ORDERED: ORPHENADRINE CITRATE 30 MG/ML VIAL ONE (13:53)
[2018-01-07 16:01] VITALS: BP 82/43
== END 2018-01-07 15:52 | disposition home or self-care (01) ==
LOC: ER 10:51
DX: R51 Headache (principal); F41.9 Anxiety disorder, unspecified; Z87.891 Personal history of nicotine dependence